=== PATIENT | female | born 2000 | race Two or more races ===

== ENCOUNTER 2018-12-23 08:38 | Emergency (ER) | payer SELFPAY ==
[~2018-12-23] VITALS: Ht 154.9 cm; Wt 63.5 kg
[2018-12-23 09:09] LABS: BASO % 0 % (0-3); EOS % 0 % (0-3); HEMATOCRIT 42.8 % (36.0-47.0); HEMOGLOBIN 14.2 g/dL (12.0-15.5); LYMPH # 0.7 x10^3/uL (1.0-4.8); LYMPH % 8 % (24-48); MEAN CORPUSCULAR HEMOGLOBIN 28 pg (25-35); MEAN CORPUSCULAR HGB CONC 33 g/dL (31-37); MEAN CORPUSCULAR VOLUME 83 fL (79-100); MONO # 1.1 x10^3/uL (0.0-1.1); MONO % 13 % (0-9); NEUT # 6.8 x10^3uL (1.8-7.7); NEUT % 79 % (31-73); PLATELET COUNT 309 x10^3/uL (140-400); RED BLOOD COUNT 5.14 x10^6/uL (3.50-5.40); RED CELL DISTRIBUTION WIDTH 13.8 % (11.5-14.5); WHITE BLOOD COUNT 8.7 x10^3/uL (4.0-11.0)
--- NOTE | 2018-12-23 09:15 | PHYS DOC ---
Adult General Chief Complaint Chief Complaint: NAUSEA/VOMITING/DIARRHA HPI HPI Patient is a 18 year old female who presents with nausea, vomiting, diarrhea since Friday. Patient states last time she vomited was at 2300 last night. Patient states that she also has generalized body aches and epigastric abdominal pain that feels like a burning and fullness. Patient rates her overall pain an 8 out of 10. Review of Systems Review of Systems Constitutional: Denies fever or chills [] Eyes: Denies change in visual acuity, redness, or eye pain [] HENT: Denies nasal congestion or sore throat [] Respiratory: Denies cough or shortness of breath [] Cardiovascular: No additional information not addressed in HPI [] GI: abdominal pain, nausea, vomiting, denies bloody stools or diarrhea [] : Denies dysuria or hematuria [] Musculoskeletal: Generalized body aches Denies back pain or joint pain [] Integument: Denies rash or skin lesions [] Neurologic: Denies headache, focal weakness or sensory changes [] All other systems were reviewed and found to be within normal limits, except as documented in this note. Current Medications Current Medications Current Medications Medications (Trade) Dose Ordered Sig/Aysha Start Time Stop Time Status Last Admin Dose Admin Famotidine (Pepcid Vial) 20 mg 1X ONCE 12/23/18 09:30 12/23/18 09:31 DC 12/23/18 09:35 20 MG Info (CONTRAST GIVEN -- Rx MONITORING) 1 each PRN DAILY PRN 12/23/18 10:30 12/25/18 10:29 Iohexol (Omnipaque 300 Mg/ml) 75 ml 1X ONCE 12/23/18 10:30 12/23/18 10:31 DC 12/23/18 10:56 75 ML Ketorolac Tromethamine (Toradol 30mg Vial) 30 mg 1X ONCE 12/23/18 09:30 12/23/18 09:31 DC 12/23/18 09:36 30 MG Ondansetron HCl (Zofran) 4 mg 1X ONCE 12/23/18 09:30 12/23/18 09:31 DC 12/23/18 09:35 4 MG Sodium Chloride 1,000 ml @ 1,000 mls/hr 1X ONCE 12/23/18 09:30 12/23/18 10:29 DC 12/23/18 10:26 1,000 MLS/HR Allergies Allergies Allergies Coded Allergies Type Severity Reaction Last Updated Verified No Known Drug Allergies 12/23/18 No Physical Exam Physical Exam Constitutional: Well developed, well nourished, no acute distress, non-toxic appearance. [] HENT: Normocephalic, atraumatic, bilateral external ears normal, oropharynx moist, no oral exudates, nose normal. [] Eyes: PERRLA, EOMI, conjunctiva normal, no discharge. [] Neck: Normal range of motion, no tenderness, supple, no stridor. [] Cardiovascular:Heart rate regular rhythm, no murmur [] Lungs & Thorax: Bilateral breath sounds clear to auscultation [] Abdomen: Bowel sounds normal, soft, epigastric tenderness, no masses, no pulsatile masses. [] Skin: Warm, dry, no erythema, no rash. [] Back: No tenderness, no CVA tenderness. [] Extremities: No tenderness, no cyanosis, no clubbing, ROM intact, no edema. [] Neurologic: Alert and oriented X 3, normal motor function, normal sensory function, no focal deficits noted. [] Psychologic: Affect normal, judgement normal, mood normal. [] Current Patient Data Vital Signs Vital Signs Date Time Temp Pulse Resp B/P (MAP) Pulse Ox O2 Delivery O2 Flow Rate FiO2 12/23/18 11:03 100 16 106/55 (72) 98 Room Air 12/23/18 09:02 99.1 99.1 Lab Values Laboratory Tests Test 12/23/18 08:56 12/23/18 09:05 12/23/18 09:50 12/23/18 10:39 White Blood Count 8.7 x10^3/uL (4.0-11.0) Red Blood Count 5.14 x10^6/uL (3.50-5.40) Hemoglobin 14.2 g/dL (12.0-15.5) Hematocrit 42.8 % (36.0-47.0) Mean Corpuscular Volume 83 fL (79-100) Mean Corpuscular Hemoglobin 28 pg (25-35) Mean Corpuscular Hemoglobin Concent 33 g/dL (31-37) Red Cell Distribution Width 13.8 % (11.5-14.5) Platelet Count 309 x10^3/uL (140-400) Neutrophils (%) (Auto) 79 % (31-73) H Lymphocytes (%) (Auto) 8 % (24-48) L Monocytes (%) (Auto) 13 % (0-9) H Eosinophils (%) (Auto) 0 % (0-3) Basophils (%) (Auto) 0 % (0-3) Neutrophils # (Auto) 6.8 x10^3uL (1.8-7.7) Lymphocytes # (Auto) 0.7 x10^3/uL (1.0-4.8) L Monocytes # (Auto) 1.1 x10^3/uL (0.0-1.1) Eosinophils # (Auto) 0.0 x10^3/uL (0.0-0.7) Basophils # (Auto) 0.0 x10^3/uL (0.0-0.2) Sodium Level 136 mmol/L (136-145) Potassium Level 3.2 mmol/L (3.5-5.1) L Chloride Level 99 mmol/L (98-107) Carbon Dioxide Level 22 mmol/L (21-32) Anion Gap 15 (6-14) H Blood Urea Nitrogen 13 mg/dL (7-20) Creatinine 0.9 mg/dL (0.6-1.0) Estimated GFR (Cockcroft-Gault) 79.8 BUN/Creatinine Ratio 14 (6-20) Glucose Level 128 mg/dL (70-99) H Calcium Level 9.1 mg/dL (8.5-10.1) Total Bilirubin 0.2 mg/dL (0.2-1.0) Aspartate Amino Transferase (AST) 20 U/L (15-37) Alanine Aminotransferase (ALT) 26 U/L (14-59) Alkaline Phosphatase 78 U/L (46-116) Total Protein 8.4 g/dL (6.4-8.2) H Albumin 3.9 g/dL (3.4-5.0) Albumin/Globulin Ratio 0.9 (1.0-1.7) L Lipase 49 U/L (73-393) L Influenza Type A Antigen Negative (NEGATIVE) Influenza Type B Antigen Negative (NEGATIVE) POC Urine HCG, Qualitative Hcg negative (Negative) Test 12/23/18 10:40 Urine Collection Type U cath Urine Color Yellow Urine Clarity Cloudy Urine pH 6.0 Urine Specific Archbold >=1.030 Urine Protein 30 mg/dL (NEG-TRACE) Urine Glucose (UA) Negative mg/dL (NEG) Urine Ketones (Stick) Negative mg/dL (NEG) Urine Blood Moderate (NEG) Urine Nitrite Negative (NEG) Urine Bilirubin Negative (NEG) Urine Urobilinogen Dipstick 0.2 mg/dL (0.2 mg/dL) Urine Leukocyte Esterase Negative (NEG) Urine RBC 3-5 /HPF (0-2) Urine WBC Occ /HPF (0-4) Urine Squamous Epithelial Cells Many /LPF Urine Bacteria Moderate /HPF (0-FEW) Urine Opiates Screen Neg (NEG) Urine Methadone Screen Neg (NEG) Urine Barbiturates Neg (NEG) Urine Phencyclidine Screen Neg (NEG) Urine Amphetamine/Methamphetamine Neg (NEG) Urine Benzodiazepines Screen Neg (NEG) Urine Cocaine Screen Neg (NEG) Urine Cannabinoids Screen Neg (NEG) Urine Ethyl Alcohol Neg (NEG) Laboratory Tests 12/23/18 08:56 Laboratory Tests 12/23/18 09:05 EKG EKG [] Radiology/Procedures Radiology/Procedures [] Impressions: [facility] [address] [place] [address] IMAGING REPORT Signed PATIENT: ANDREA JOHNSON ACCOUNT: [id number] : 2000 LOCATION: ER AGE: 18 SEX: F EXAM STATUS: REG ER ORD. PHYSICIAN: GAYATRI KEY APRN REASON: abdominal pain, vomiting PROCEDURE: CT ABD PELV W/ IV CONTRST ONLY PQRS Compliance statement: One or more of the following individualized dose reduction techniques were utilized for this examination: 1. Automated exposure control. 2. Adjustment of the mA and/or kV according to patient size. 3. Use of iterative reconstruction technique. Indication:NV ABD PAIN INJ 75ML OMNI 300 NO PREV TECHNIQUE: CT abdomen and pelvis with IV contrast with multiplanar reformats. COMPARISON: None FINDINGS: Heart is normal in size. No pericardial or pleural effusion. Clear lung bases. Liver, spleen, pancreas, adrenals and kidneys are within normal limits. Gallbladder is distended without radiopaque stones. No pericholecystic inflammatory changes. No enlarged retroperitoneal or pelvic adenopathy. No free pelvic fluid or ascites. No bowel obstruction. After liver seen in the colon. Normal appendix. Right lower quadrant shotty lymph nodes are seen, likely reactive. No pneumoperitoneum. Anteverted uterus. Urinary bladder is within normal limits. No suspicious bony lesion. IMPRESSION: 1. Air-fluid levels levels in the colon. Correlate with symptoms of diarrhea. No bowel obstruction. Electronically signed by: Juvencio Perez DO (12/23/2018 11:22 AM) [facility] DICTATED and SIGNED BY: JUVENCIO PEREZ DO DATE: 12/23/18 1122 Course & Med Decision Making Course & Med Decision Making Patient is a 18 year old female who presents with nausea, vomiting, diarrhea since Friday. Patient states last time she vomited was at 2300 last night. Patient states that she also has generalized body aches and epigastric abdominal pain that feels like a burning and fullness. Patient rates her overall pain an 8 out of 10. Alert and oriented. Skin pink warm and dry. Mucous membranes are moist. Patient is tachycardia at 126. Afebrile. Speaks in full clear sentences. Abdomen is soft but tender in epigastric and bilateral upper quadrants. Patient denies dysuria, dizziness, chest pain, shortness of air, fever, cough, nasal congestion, numbness or tingling, weakness. Lungs are clear to auscultation in all lobes. Heart rate tachy but no murmur. PERRLA. Neurologically intact. Follow-up her primary care provider. Drink plenty of fluids and return if symptoms worsen. Dragon Disclaimer Dragon Disclaimer This electronic medical record was generated, in whole or in part, using a voice recognition dictation system. Departure Departure Impression: Primary Impression: Nausea & vomiting Disposition: 01 HOME, SELF-CARE Condition: STABLE Referrals: NO PCP (PCP) Patient Instructions: Nausea and Vomiting Additional Instructions: Follow-up her primary care provider. Drink plenty of fluids. Eat very light meals. Take medication as prescribed. Scripts Ondansetron (ONDANSETRON ODT) 4 Mg Tab.rapdis 1 TAB PO PRN Q6-8HRS, #20 TAB Prov: GAYATRI KEY HOUSING OFFICER 12/23/18 Problem Qualifiers Primary Impression: Nausea & vomiting Vomiting type: unspecified Vomiting Intractability: non-intractable Qualified Codes: R11.2 - Nausea with vomiting, unspecified GAYATRI KEY APRN Dec 23, 2018 09:15
[2018-12-23 09:17] LABS: CALCIUM 9.1 mg/dL (8.5-10.1); CREATININE 0.9 mg/dL (0.6-1.0); GFR 79.8; POTASSIUM 3.2 mmol/L (3.5-5.1)
[2018-12-23 09:26] LABS: ALBUMIN 3.9 g/dL (3.4-5.0); ALBUMIN/GLOBULIN RATIO 0.9 (1.0-1.7); TOTAL BILIRUBIN 0.2 mg/dL (0.2-1.0); TOTAL PROTEIN 8.4 g/dL (6.4-8.2)
[2018-12-23] MEDS ORDERED: ONDANSETRON PF 4 MG/2 ML VIAL. IV ONE (09:30)
[2018-12-23] MEDS ORDERED: IV NORMAL SALINE 1000ML BAG 1,000 ML IV SCH (09:30)
[2018-12-23] MEDS ORDERED: FAMOTIDINE 20 MG/2 ML VIAL IVP ONE (09:30)
[2018-12-23] MEDS ORDERED: KETOROLAC 30 MG/ML VIAL. IV ONE (09:30)
[2018-12-23] MEDS ORDERED: IV NORMAL SALINE 1000ML BAG 1,000 ML IV ONE (09:30)
[2018-12-23] MEDS ORDERED: IOHEXOL 300 MG/ML 100ML VIAL. IV ONE (10:30)
[2018-12-23] MEDS ORDERED: CONTRAST GIVEN. MC PRN (10:30)
[2018-12-23 10:35] LABS: INFLUENZA A PATIENT NEGATIVE (NEGATIVE); INFLUENZA B PATIENT NEGATIVE (NEGATIVE)
[2018-12-23 10:59] LABS: BILIRUBIN,URINE NEGATIVE (NEG); CLARITY,URINE CLOUDY; COLOR,URINE YELLOW; NITRITE,URINE NEGATIVE (NEG); PROTEIN,URINE 30 mg/dL (NEG-TRACE); UROBILINOGEN,URINE 0.2 mg/dL (0.2 mg/dL)
[2018-12-23 11:15] LABS: WBC,URINE OCC /HPF (0-4)
[2018-12-23 11:16] LABS: BACTERIA,URINE MODERATE /HPF (0-FEW); SQUAMOUS EPITHELIAL CELL,UR MANY /LPF
[2018-12-23 11:20] LABS: BARBITURATES NEG (NEG); BENZODIAZEPINES NEG (NEG); CANNABINOIDS NEG (NEG); COCAINE NEG (NEG); METHADONE NEG (NEG); OPIATES NEG (NEG); PHENCYCLIDINE NEG (NEG)
[2018-12-23 11:24] LABS: AMPHETAMINE/METHAMPHETAMINE NEG (NEG)
--- NOTE | 2018-12-23 11:25 | RAD ---
PQRS Compliance statement: One or more of the following individualized dose reduction techniques were utilized for this examination: 1. Automated exposure control. 2. Adjustment of the mA and/or kV according to patient size. 3. Use of iterative reconstruction technique. Indication:NV ABD PAIN INJ 75ML OMNI 300 NO PREV TECHNIQUE: CT abdomen and pelvis with IV contrast with multiplanar reformats. COMPARISON: None FINDINGS: Heart is normal in size. No pericardial or pleural effusion. Clear lung bases. Liver, spleen, pancreas, adrenals and kidneys are within normal limits. Gallbladder is distended without radiopaque stones. No pericholecystic inflammatory changes. No enlarged retroperitoneal or pelvic adenopathy. No free pelvic fluid or ascites. No bowel obstruction. After liver seen in the colon. Normal appendix. Right lower quadrant shotty lymph nodes are seen, likely reactive. No pneumoperitoneum. Anteverted uterus. Urinary bladder is within normal limits. No suspicious bony lesion. IMPRESSION: 1. Air-fluid levels levels in the colon. Correlate with symptoms of diarrhea. No bowel obstruction. Electronically signed by: Juvencio Oliva DO (12/23/2018 11:22 AM) [facility]
[2018-12-23 11:32] VITALS: BP 106/62
[2018-12-23] MEDS ORDERED: ONDA4TAB12 PO (11:44)
== END 2018-12-23 12:05 | disposition home or self-care (01) ==
LOC: ER 08:38
DX: R11.2 Nausea with vomiting, unspecified (principal); R19.7 Diarrhea, unspecified; M79.18 Myalgia, other site; R10.13 Epigastric pain
CPT/HCPCS: 36415; 74177; 80053; 80307; 81001; 81025; 83690; 85025; 87086; 87804; 96361; 96374; 96375; 99284; J1885; J2405; J3490; J7030; Q9967